=== PATIENT | female | born 1950 | race Caucasian/White ===

== ENCOUNTER 2018-01-11 13:13 | Observation (INO) ==
[2018-01-11] MEDS ORDERED: ONDANSETRON 4 MG/2 ML VIAL IV PRN (15:13)
[2018-01-11] MEDS ORDERED: LACTULOSE 20 GM/30 ML UDCUP PO PRN (15:13)
[2018-01-11] MEDS ORDERED: SODIUM CHLORIDE 0.9% 500 ML IV ONE (16:00)
[2018-01-11 16:27] LABS: Apearance,Urine CLEAR (Clear); Bilirubin,Urine Negative (Negative); Blood, Urine Negative (Negative); Glucose,Urine (UA) Negative (Negative); Ketones,Urine 5 mg/dL (Negative); Mucus,Urine Occasional /LPF (Occasional); Nitrite,Urine Negative (Negative); Protein,Urine Negative; Squamous Epithelial Cell,Urine Occasional /HPF (0-10); Urine Color Colorless (Yellow); Urine Specific Gravity 1.002 (1.001-1.035); Urine Urobilinogen < 2.0 EU/DL (0.2-1.0)
[2018-01-11 16:28] LABS: Basophils % 0.1 % (0.0-0.8); Hematocrit 39.2 VOL% (35.7-47.0); Hemoglobin 13.6 GM/DL (12.0-16.0); Immature Granulocytes % 0.5 %; Immature Granulocytes Absolute 0.04 #; Lymphocytes # 2.6 10*3/uL (1.4-4.0); Lymphocytes % 29.3 % (21.3-54.2); Mean Corpuscular HGB Conc 34.7 GM/DL (32-36); Mean Corpuscular Hemoglobin 36 PG (27-34); Mean Corpuscular Volume 102.6 FL (87-102); Mean Platelet Volume 10.6 FL (9.6-12.0); Monocytes # 0.4 10*3/uL (0.11-0.8); Monocytes % 4.6 % (1.7-12.7); Neutrophils # 5.7 10*3/uL (1.4-7.4); Neutrophils % 65.5 % (38.7-73.9); Platelet Count 231 T/CUMM (130-400); Red Blood Count 3.82 MC/CUMM (3.8-5.5); Red Cell Distribution Width 13.9 % (9.3-17.3); White Blood Count 8.8 T/CUMM (4-12)
[2018-01-11 17:00] LABS: Albumin 3.8 G/DL (3.4-5.0); Calcium 9.5 MG/DL (8.5-10.1); Osmolality,Calculated 272.7 MOS/KG (273-304); Potassium 3.6 MMOL/L (3.5-5.1); Total Protein 7.3 G/DL (6.4-8.3)
[2018-01-11] MEDS: AMPICILLIN/SULBACTAM 3,000 MG in SODIUM CHLORIDE 0.9% 100 ML IV SCH (18:35)
[2018-01-11] MEDS: SODIUM CHLORIDE 0.45% 1,000 ML IV SCH (18:36)
[2018-01-11] MEDS: SERTRALINE 50 MG TABLET PO SCH (21:39)
[2018-01-11] MEDS: ZALEPLON 5 MG CAPSULE PO PRN (21:39)
[2018-01-11] MEDS: ENOXAPARIN 40 MG/0.4 ML SYRINGE SUBCUT SCH (22:18)
[2018-01-12] MEDS: AMPICILLIN/SULBACTAM 3,000 MG in SODIUM CHLORIDE 0.9% 100 ML IV SCH ×5 (00:23→21:02)
[2018-01-12] MEDS: BISOPROLOL/HCTZ 5-6.25 MG TABLET PO SCH (08:15)
[2018-01-12] MEDS: PANTOPRAZOLE 40 MG TABLET PO SCH (08:16)
[2018-01-12] MEDS: SODIUM CHLORIDE 0.45% 1,000 ML IV SCH ×2 (08:55→22:45)
[2018-01-12] MEDS ORDERED: PANTOPRAZOLE 40 MG TABLET PO SCH (09:00)
[2018-01-12] MEDS: ACETAMINOPHEN 325 MG TABLET PO PRN (16:42)
[2018-01-12] MEDS: ZALEPLON 5 MG CAPSULE PO PRN (21:04)
[2018-01-12] MEDS: ENOXAPARIN 40 MG/0.4 ML SYRINGE SUBCUT SCH (21:05)
[2018-01-12] MEDS: SERTRALINE 50 MG TABLET PO SCH (21:05)
[2018-01-13] MEDS: AMPICILLIN/SULBACTAM 3,000 MG in SODIUM CHLORIDE 0.9% 100 ML IV SCH ×4 (03:12→21:07)
[2018-01-13 04:13] LABS: Basophils % 0.2 % (0.0-0.8); Eosinophils % 0.6 % (0.00-10.9); Hematocrit 38.5 VOL% (35.7-47.0); Hemoglobin 13.1 GM/DL (12.0-16.0); Immature Granulocytes % 0.3 %; Immature Granulocytes Absolute 0.02 #; Lymphocytes # 2.7 10*3/uL (1.4-4.0); Lymphocytes % 43.8 % (21.3-54.2); Mean Corpuscular Hemoglobin 36 PG (27-34); Mean Corpuscular Volume 104.3 FL (87-102); Mean Platelet Volume 10.6 FL (9.6-12.0); Monocytes # 0.5 10*3/uL (0.11-0.8); Monocytes % 7.8 % (1.7-12.7); Neutrophils # 2.9 10*3/uL (1.4-7.4); Neutrophils % 47.3 % (38.7-73.9); Platelet Count 201 T/CUMM (130-400); Red Blood Count 3.69 MC/CUMM (3.8-5.5); Red Cell Distribution Width 13.9 % (9.3-17.3); White Blood Count 6.2 T/CUMM (4-12)
[2018-01-13 04:36] LABS: Calcium 8.7 MG/DL (8.5-10.1); Osmolality,Calculated 285.8 MOS/KG (273-304); Potassium 3.3 MMOL/L (3.5-5.1)
[2018-01-13] MEDS: ACETAMINOPHEN 325 MG TABLET PO PRN ×2 (09:26→15:42)
[2018-01-13] MEDS: PANTOPRAZOLE 40 MG TABLET PO SCH (09:26)
[2018-01-13] MEDS: BISOPROLOL/HCTZ 5-6.25 MG TABLET PO SCH (09:26)
[2018-01-13] MEDS: SODIUM CHLORIDE 0.45% 1,000 ML IV SCH (13:22)
[2018-01-13] MEDS: LOPERAMIDE 2 MG CAPSULE PO PRN ×2 (15:01→21:06)
[2018-01-13] MEDS: ZALEPLON 5 MG CAPSULE PO PRN (21:05)
[2018-01-13] MEDS: SERTRALINE 50 MG TABLET PO SCH (21:06)
[2018-01-13] MEDS: ENOXAPARIN 40 MG/0.4 ML SYRINGE SUBCUT SCH (21:13)
[2018-01-14] MEDS: SODIUM CHLORIDE 0.45% 1,000 ML IV SCH ×2 (00:35→15:30)
[2018-01-14] MEDS: AMPICILLIN/SULBACTAM 3,000 MG in SODIUM CHLORIDE 0.9% 100 ML IV SCH ×4 (03:33→20:34)
[2018-01-14] MEDS: LOPERAMIDE 2 MG CAPSULE PO PRN ×2 (06:20→11:46)
[2018-01-14] MEDS ORDERED: NICOTINE 21 MG/24 HR PATCH TRANSDERM SCH (09:00)
[2018-01-14] MEDS: BISOPROLOL/HCTZ 5-6.25 MG TABLET PO SCH (09:45)
[2018-01-14] MEDS: ACETAMINOPHEN 325 MG TABLET PO PRN ×2 (09:46→19:33)
[2018-01-14] MEDS: PANTOPRAZOLE 40 MG TABLET PO SCH (09:46)
[2018-01-14] MEDS: POTASSIUM CHLORIDE 20 MEQ TABLET PO PRN ×3 (12:01→17:21)
[2018-01-14] MEDS: SERTRALINE 50 MG TABLET PO SCH (20:34)
[2018-01-14] MEDS: ZALEPLON 5 MG CAPSULE PO PRN (20:34)
[2018-01-14] MEDS: ENOXAPARIN 40 MG/0.4 ML SYRINGE SUBCUT SCH (20:37)
[2018-01-15] MEDS: AMPICILLIN/SULBACTAM 3,000 MG in SODIUM CHLORIDE 0.9% 100 ML IV SCH (03:08)
[2018-01-15] MEDS: SODIUM CHLORIDE 0.45% 1,000 ML IV SCH (04:00)
[2018-01-15] MEDS: LOPERAMIDE 2 MG CAPSULE PO PRN (07:25)
[2018-01-15 07:39] VITALS: BP 122/64
== END 2018-01-15 08:57 | disposition home or self-care (01) ==
LOC: N.2E 13:59 → INTOOBSV 13:59 → SUATTDRO 13:59
PROVIDERS: ADMIT Internal Medicine; ATTEND Internal Medicine Geriatric Medicine